=== PATIENT | female | born 1960 | race Caucasian/White ===

== ENCOUNTER → 2017-04-18 | Outpatient (CLI) | payer BC ==
[~2017-04-18] MED LIST: HYDR25TA4 PO; LAMO200T38 PO; PRM/45 PO; QUET-205 PO
[2017-04-18 13:01] LABS: BLOOD UREA NITROGEN 10 mg/dl (7-18); BUN/CREATININE RATIO 9.5 (10-20); CALCIUM 9.5 mg/dl (8.5-10.1); CARBON DIOXIDE 26 mmol/L (21-32); CHLORIDE 106 mmol/L (98-107); CHOLESTEROL 194 mg/dl (0-200); GLUCOSE 95 mg/dl (70-99); POTASSIUM 3.2 mmol/L (3.5-5.1); SODIUM 139 mmol/L (136-145)
[2017-04-18 13:05] LABS: CHOLESTEROL/HDL RATIO 2.6; HDL CHOLESTEROL 76 mg/dl; LDL CHOLESTEROL CALCULATED 94 mg/dl; TRIGLYCERIDES 118 mg/dl (0-150); VERY LOW DENSITY LIPOPROT CALC 24 mg/dl
== END | disposition home or self-care (01) ==
LOC: C.LABBFT 09:51
PROVIDERS: ATTEND Psychiatry & Neurology Psychiatry
DX: Z51.81 Encounter for therapeutic drug level monitoring (principal); Z79.899 Other long term (current) drug therapy

== ENCOUNTER → 2017-07-19 | Outpatient (CLI) | payer BC ==
[~2017-07-19] MED LIST changes: +LAMO200T35 PO; -LAMO200T38 PO
--- NOTE | 2017-07-23 15:28 | MAMMOGRAPHY REPORT ---
BILATERAL DIGITAL SCREENING MAMMOGRAM TOMOSYNTHESIS WITH CAD: 07/19/2017 TECHNIQUE: Breast tomosynthesis in addition to standard 2D mammography was performed. Current study was also evaluated with a Computer Aided Detection (CAD) system. COMPARISON: Comparison is made to exams dated: 04/11/2016 mammogram, 03/25/2015 mammogram, 03/24/2014 m ammogram, and 03/25/2012 mammogram - [facility]. BREAST COMPOSITION: There are scattered areas of fibroglandular density in both breasts. FINDINGS: No suspicious masses, calcifications, or areas of architectural distortion are noted in ei ther breast. There has been no significant interval change compared to prior exams. IMPRESSION: ACR BI-RADS CATEGORY 1: NEGATIVE There is no mammographic evidence of malignancy. A 1 year screening mammogram is recommended. The pa tient will receive written notification of the results. Approximately 10% of breast cancers are not detected with mammography. A negative mammographic report should not delay biopsy if a clinically suggestive mass is present. Mckayla Reilly M.D. ah/:07/19/2017 15:51:57 Advertising Analyst: Aleksandra ROBERTS(Nate)(M), [facility] letter sent: Normal 1/2 BI-RADS Code: ACR BI-RADS Category 1: Negative
== END | disposition home or self-care (01) ==
LOC: C.MAMM 13:04
PROVIDERS: ATTEND Internal Medicine
DX: Z12.31 Encounter for screening mammogram for malignant neoplasm of breast (principal)

== ENCOUNTER → 2017-09-10 | Outpatient (CLI) | payer BC ==
[2017-09-10 13:03] LABS: BLOOD UREA NITROGEN 13 mg/dl (7-18); CALCIUM 9.2 mg/dl (8.5-10.1); CARBON DIOXIDE 29 mmol/L (21-32); CREATININE 1.08 mg/dl (0.60-1.20); GLUCOSE 87 mg/dl (70-99); POTASSIUM 2.8 mmol/L (3.5-5.1); SODIUM 139 mmol/L (136-145)
== END | disposition home or self-care (01) ==
LOC: C.LABBFT 09:15
PROVIDERS: ATTEND Nurse Practitioner
DX: I10 Essential (primary) hypertension (principal)

== ENCOUNTER 2017-10-25 10:55 | Observation (INO) | payer BC ==
[~2017-10-25] VITALS: Ht 154.9 cm; Wt 74.8 kg
[2017-10-25] MEDS ORDERED: DEXAMETHASONE SOD INJ 4 MG/ML VIAL IV STA (11:19)
[2017-10-25] MEDS ORDERED: DiphenhydrAMINE HCL 50 MG/ML VIAL IV STA (11:19)
[2017-10-25] MEDS ORDERED: MoRPHine SULFATE 4 MG/ML 1 ML CARP\\VIAL IV STA (11:19)
[2017-10-25] MEDS ORDERED: PROCHLORPERAZINE 5 MG/ML 2 ML VIAL IV STA (11:19)
[2017-10-25] MEDS ORDERED: SODIUM CHLORIDE 0.9% 1000ML 1,000 ML IV ONE (11:30)
[2017-10-25] MEDS ORDERED: TOPI100T20 PO (11:35)
[2017-10-25] MEDS ORDERED: SRQ/200 PO (11:35)
[2017-10-25] MEDS ORDERED: LOSA50TA6 PO (11:35)
[2017-10-25] MEDS ORDERED: OPTIRAY 320 IV PRN (11:45)
[2017-10-25 11:55] LABS: BASO % 0.6 %; BASO ABS # 0.03 K/uL (0-0.2); EOS % 1.7 %; EOS ABS # 0.09 K/uL (0-0.5); HEMATOCRIT 45.3 % (37-47); HEMOGLOBIN 15.5 g/dL (12.0-16.0); IG# 0.01 K/uL (0.00-0.02); LYMPH % 28.4 %; LYMPH ABS # 1.52 K/uL (1.2-3.4); MEAN CELL VOLUME 88.5 fL (80-100); MEAN CORPUSCULAR HEMOGLOBIN 30.3 pg (25-34); MEAN CORPUSCULAR HGB CONC 34.2 g/dl (32-36); MEAN PLATELET VOLUME 9.6 fL (7.4-10.4); MONO % 4.1 %; MONO ABS # 0.22 K/uL (0.11-0.59); NEUT ABS # 3.48 K/uL (1.4-6.5); PLATELET COUNT 264 K/uL (130-400); RED CELL DISTRIBUTION WIDTH CV 13.4 % (11.5-14.5); RED CELL DISTRIBUTION WIDTH SD 43.1 fL (36.4-46.3); WHITE BLOOD COUNT 5.35 K/uL (4.8-10.8)
--- NOTE | 2017-10-25 12:02 | DIAGNOSTIC IMAGING REPORT ---
ANGIOGRAPHY HEAD COMBO HISTORY: Mental status change facial numbness TECHNIQUE: Multiaxial CT images of the head were performed both before and after the intravenous administration of contrast to evaluate the major cerebral vessels. Maximum intensity projection images were also obtained. A dose lowering technique was utilized adhering to the principles of ALARA. COMPARISON: None. FINDINGS: There is no mass, hematoma, midline shift, or acute infarct. Visualized intracranial internal carotid arteries, distal vertebral arteries, and basilar artery are widely patent. There is no significant stenosis, occlusion, or aneurysm seen within the bilateral ACAs, MCAs, or belt cutter. The anterior cerebral vasculature is fed exclusively from the left carotid system. This is a vascular variant. IMPRESSION: No significant stenosis, occlusion, or aneurysm within the [place]. Negative CT of the brain. The above report was generated using voice recognition software. It may contain grammatical, syntax or spelling errors. Electronically signed by: Roosevelt Anderson M.D. 10/25/2017 12:01 PM Dictated Date/Time: 10/25/2017 11:56 AM
--- NOTE | 2017-10-25 12:14 | EMERGENCY ROOM VISIT NOTE ---
History First contact with patient: 11:04 Chief Complaint: HEADACHE Stated Complaint: DEAN ON RT SIDE, FACE NUMB History of Present Illness The patient is a 57 year old female who presents to the Emergency Room with complaints of a severe headache in the left back side of her head that started this morning around 9:30 AM. The patient is also complaining of left sided facial numbness. She also feels like the back side of her left head is numb. She denies any confusion or slurred speech. No weakness in her hands or legs. No numbness over the rest of her body. She is also fairly nauseated. No vomiting. She denies any photosensitivity. No changes in vision. No aura. She does have a history of migraines. This does not feel like her typical migraine. She tried Advil at home with no relief. Review of Systems 10 system review performed and negative unless noted in HPI or below Past Medical/Surgical History Medical Problems: (1) Facial numbness (2) Headache Hypertension Social History Smoking Status: Never Smoker Housing Status: lives with family Current/Historical Medications Scheduled Hydrochlorothiazide (Hctz), 25 MG PO DAILY Lamotrigine (Lamictal), 200 MG PO BID Losartan Potassium (Cozaar), 50 MG PO DAILY Potassium Chloride (Potassium Chloride Er), 1 CAP PO DAILY Quetiapine Fumarate (Quetiapine Fumarate), 400 MG PO HS Topiramate (Topamax), 100 MG PO BID Physical Exam Vital Signs Date Time Temp Pulse Resp B/P (MAP) Pulse Ox O2 Delivery O2 Flow Rate FiO2 10/25/17 12:07 102 20 133/88 10/25/17 10:57 37.0 111 18 139/88 98 Room Air Physical Exam VITALS: Vitals are noted on the nurse's note and reviewed by myself. Vital signs stable. GENERAL: 57-year-old female, moderately uncomfortable and anxious in appearance, , SKIN: The skin was without rashes, erythema, edema, or bruising. HEAD: Normocephalic atraumatic. EARS: External auditory canals clear, tympanic membranes pearly k[place] without erythema or effusion bilaterally. EYES: Pupils equal round and reactive to light and accommodation. Left conjunctivitis slightly injected. Extraocular movements intact. NOSE: Patent, turbinates without inflammation or discharge. No sinus tenderness. MOUTH: Mucous membranes slightly dry tonsils are not enlarged. Pharynx without erythema or exudate. Uvula midline. Airway patent. Tongue does not deviate. NECK: Supple without nuchal rigidity. No lymphadenopathy. Cervical spine is nontender. No JVD. HEART: Regular rate and rhythm without murmurs gallops or rubs. LUNGS: Clear to auscultation bilaterally without wheezes, rales or rhonchi. No accessory muscle use. ABDOMEN: Positive bowel sounds x 4.Soft, MUSCULOSKELETAL: No muscle atrophy, erythema, or edema noted. Full range of motion in all extremities. No tenderness to palpation. Normal gait. Strength 5/5 throughout. NEURO: Patient was alert and oriented to person place and time. . Subjective dulled sensation on the left cheek. Otherwise, cranial nerves grossly intact. Cerebellar function intact. Slight tremor with the left hand with finger to nose. Medical Decision & Procedures ER Provider Diagnostic Interpretation: CT angio with and without head IMPRESSION: No significant stenosis, occlusion, or aneurysm within the [place]. Negative CT of the brain. The above report was generated using voice recognition software. It may contain grammatical, syntax or spelling errors. Electronically signed by: Roosevelt Anderson M.D. 10/25/2017 12:01 PM Dictated Date/Time: 10/25/2017 11:56 AM The status of this report is Signed. Draft = Not yet reviewed or approved by Radiologist. Signed = Reviewed and approved by Radiologist. <AttendingPhy></AttendingPhy> <FamilyPhy>Ziggy Sutton M.D.</FamilyPhy> < PrimaryPhy>Ziggy Sutton M.D.</PrimaryPhy> <UnitNumber>[id number]</UnitNumber > <VisitNumber>[id number]</VisitNumber> <PatientName>KRUPA PADGETT</ PatientName> <DateOfBirth>1960</DateOfBirth> <Location>[facility]</Location> < ServiceDate>10/25/17</ServiceDate> <MNE>ESINDI</MNE> <OrderingPhy>Geraldine Francisco PA-C</OrderingPhy> <OrderingPhyMNE>f rep ord dr gentile</OrderingPhyMNE> < DictatingPhyMNE>f rep dict dr mne</DictatingPhyMNE> <CCListMNE>f rep ct mne</ CCListMNE> <AdmittingPhyMNE>f pt admit dr gentile</AdmittingPhyMNE> <AttendingPhyMNE >f pt attend dr gentile</AttendingPhyMNE> <ConsultingPhyMNE>f pt consult dr gentiel</ConsultingPhyMNE> <FamilyPhyMNE>f pt fam dr gentile</FamilyPhyMNE> <OtherPhyMNE>f pt other dr gentile</OtherPhyMNE> < PrimaryPhyMNE>f pt prim care dr gentile</PrimaryPhyMNE> <ReferringPhyMNE>f pt referring dr gentile</ReferringPhyMNE> Laboratory Results 10/25/17 11:40 Red Blood Count 5.12, Mean Corpuscular Volume 88.5, Mean Corpuscular Hemoglobin 30.3, Mean Corpuscular Hemoglobin Concent 34.2, Mean Platelet Volume 9.6, Neutrophils (%) (Auto) 65.0, Lymphocytes (%) (Auto) 28.4, Monocytes (%) (Auto) 4.1, Eosinophils (%) (Auto) 1.7, Basophils (%) (Auto) 0.6, Neutrophils # (Auto) 3.48, Lymphocytes # (Auto) 1.52, Monocytes # (Auto) 0.22, Eosinophils # (Auto) 0.09, Basophils # (Auto) 0.03 10/25/17 11:40 Test 10/25/17 11:40 10/25/17 11:42 10/25/17 13:13 White Blood Count 5.35 K/uL (4.8-10.8) Red Blood Count 5.12 M/uL (4.2-5.4) Hemoglobin 15.5 g/dL (12.0-16.0) Hematocrit 45.3 % (37-47) Mean Corpuscular Volume 88.5 fL (80-100) Mean Corpuscular Hemoglobin 30.3 pg (25-34) Mean Corpuscular Hemoglobin Concent 34.2 g/dl (32-36) Platelet Count 264 K/uL (130-400) Mean Platelet Volume 9.6 fL (7.4-10.4) Neutrophils (%) (Auto) 65.0 % Lymphocytes (%) (Auto) 28.4 % Monocytes (%) (Auto) 4.1 % Eosinophils (%) (Auto) 1.7 % Basophils (%) (Auto) 0.6 % Neutrophils # (Auto) 3.48 K/uL (1.4-6.5) Lymphocytes # (Auto) 1.52 K/uL (1.2-3.4) Monocytes # (Auto) 0.22 K/uL (0.11-0.59) Eosinophils # (Auto) 0.09 K/uL (0-0.5) Basophils # (Auto) 0.03 K/uL (0-0.2) RDW Standard Deviation 43.1 fL (36.4-46.3) RDW Coefficient of Variation 13.4 % (11.5-14.5) Immature Granulocyte % (Auto) 0.2 % Immature Granulocyte # (Auto) 0.01 K/uL (0.00-0.02) Erythrocyte Sedimentation Rate 15 mm/hr (0-21) Prothrombin Time 9.9 SECONDS (9.0-12.0) Prothromb Time International Ratio 0.9 (0.9-1.1) Activated Partial Thromboplast Time 27.8 SECONDS (21.0-31.0) Partial Thromboplastin Ratio 1.1 Est Creatinine Clear Calc Drug Dose 47.4 ml/min Estimated GFR () 56.1 Estimated GFR (Non- 48.4 BUN/Creatinine Ratio 11.9 (10-20) Calcium Level 9.4 mg/dl (8.5-10.1) Magnesium Level 2.3 mg/dl (1.8-2.4) Total Bilirubin 0.3 mg/dl (0.2-1) Aspartate Amino Transf (AST/SGOT) 16 U/L (15-37) Alanine Aminotransferase (ALT/SGPT) 33 U/L (12-78) Alkaline Phosphatase 112 U/L (45-117) Total Creatine Kinase 116 U/L (26-192) Creatine Kinase MB < 0.5 ng/ml (0.5-3.6) Creatine Kinase MB Ratio (0-3.0) Troponin I < 0.015 ng/ml (0-0.045) Total Protein 8.3 gm/dl (6.4-8.2) Albumin 4.7 gm/dl (3.4-5.0) Globulin 3.6 gm/dl (2.5-4.0) Albumin/Globulin Ratio 1.3 (0.9-2) Bedside Hemoglobin 15.3 g/dl (12.0-16.0) Bedside Hematocrit 45 % (37-47) Bedside Sodium 145 mEq/L (135-144) Bedside Potassium 3.1 mEq/L (3.3-5.0) Bedside Chloride 108 mEq/L (101-112) Bedside Total CO2 25 mEq/l (24-31) Anion Gap 17.0 mmol/L (16-25) Bedside Blood Urea Nitrogen 15 mg/dl (7-18) Bedside Creatinine 1.1 mg/dl (0.6-1.3) Bedside Glucose (other) 149 mg/dl (70-99) Bedside Ionized Calcium (Isabel) 1.16 mmol/l (1.12-1.32) Urine Color YELLOW Urine Appearance CLEAR (CLEAR) Urine pH 8.0 (4.5-7.5) Urine Specific [place] 1.042 (1.000-1.030) Urine Protein NEG (NEG) Urine Glucose (UA) NEG (NEG) Urine Ketones NEG (NEG) Urine Occult Blood NEG (NEG) Urine Nitrite NEG (NEG) Urine Bilirubin NEG (NEG) Urine Urobilinogen NEG (NEG) Urine Leukocyte Esterase NEG (NEG) Medications Administered Medications (Trade) Dose Ordered Sig/Ramiro Route Start Time Stop Time Status Last Admin Dose Admin Sodium Chloride 1,000 ml @ 999 mls/hr Q1H1M ONCE IV 10/25/17 11:30 10/25/17 12:30 DC 10/25/17 12:04 999 MLS/HR Diphenhydramine HCl (Benadryl Inj) 50 mg NOW STAT IV 10/25/17 11:19 10/25/17 11:24 DC 10/25/17 12:00 50 MG Prochlorperazine Edisylate (Compazine Inj) 10 mg NOW STAT IV 10/25/17 11:19 10/25/17 11:24 DC 10/25/17 12:01 10 MG Dexamethasone Sodium Phosphate (Decadron Inj) 10 mg NOW STAT IV 10/25/17 11:19 10/25/17 11:24 DC 10/25/17 12:01 10 MG Morphine Sulfate (MoRPHine SULFATE INJ) 4 mg ONE STAT IV 10/25/17 11:19 10/25/17 11:24 DC 10/25/17 12:02 4 MG Potassium Chloride (Kcl 10 Meq / Wtr) 10 meq NOW STAT IV 10/25/17 12:28 10/25/17 12:29 DC 10/25/17 13:13 10 MEQ Potassium Chloride (Klor-Con M10) 40 meq NOW ONCE PO 10/25/17 14:00 10/25/17 14:59 DC 10/25/17 15:15 40 MEQ Cyclobenzaprine HCl (Flexeril Tab) 10 mg 1400 ONCE PO 10/25/17 14:00 10/25/17 14:56 DC 10/25/17 15:15 10 MG ED Course Patient was seen and examined Vital signs including blood pressure were reviewed medications list was verified with patient Labs were obtained, and a saline lock was established The patient was medicated with Benadryl, Decadron and Compazine IV. She was hydrated with 1 L of normal saline. Imaging was performed and reviewed The patient was reassessed. Her headache went from a 7 to a 5 out of 10. We thoroughly reviewed her results. She voiced understanding. The case was also discussed with my supervising physician who is in agreement with my plan I discussed the case with case management and subsequently the [facility] hospitalist team, who kindly agreed to admit the patient for further workup and treatment Medical Decision Differential includes: Atypical migraine, acute intracranial bleed, trauma, meningitis, encephalitis, increased intracranial pressure, mass or mass effect, facial or dental infection, temporal arteritis, CVA, TIA, acute hypertensive emergency, sinusitis, carbon monoxide exposure. This patient is a 57-year-old female that presents to emergency department with a severe left occipital headache and left facial numbness. On exam, she was neurologically intact, however she had subjective decreased sensation over the left cheek. Her labs reveal a mildly elevated creatinine. When questioned, the patient says that she does take daily ibuprofen for headaches. Her potassium was also low. This was repleted in the emergency department. Despite having slight pain relief, the numbness on the face persisted. I cannot completely rule out TIA/CVA. For these reasons, the case was discussed with the hospitalist group who kindly agreed to admit the patient for further workup and treatment This chart was completed in part utilizing [employer] Voice Recognition software. Attempts were made to minimize the grammatical errors, random word insertions, pronoun errors and incomplete sentences. Any formal questions or concerns about the content, text or information contained within the body of this dictation should be directly addressed to the provider for clarification. Medication Reconcilliation Current Medication List: was personally reviewed by me Blood Pressure Screening Patient's blood pressure: Elevated blood pressure Blood pressure disposition: Elevated BP felt to be situational Consults Consulting Physician: Mouth and a hospitalist Impression Primary Impression: Facial numbness Additional Impression: Headache Departure Information Referrals Ziggy Sutton M.D. (PCP) Patient Instructions My [facility] Problem Qualifiers
[2017-10-25 12:16] LABS: ALBUMIN 4.7 gm/dl (3.4-5.0); CALCIUM 9.4 mg/dl (8.5-10.1); CREATININE 1.25 mg/dl (0.60-1.20)
[2017-10-25 12:19] LABS: TOTAL PROTEIN 8.3 gm/dl (6.4-8.2)
[2017-10-25] MEDS ORDERED: POTASSIUM CHLORIDE 10 MEQ / 100ML WTR IV STA (12:28)
[2017-10-25] MEDS ORDERED: CYCLOBENZAPRINE HCL 5 MG TAB PO ONE (14:00)
[2017-10-25] MEDS ORDERED: ALUMINUM/MAGNESIUM/SIMETH (MAALOX MAX) 30 ML UDC PO PRN (14:00)
[2017-10-25] MEDS ORDERED: POLYETHYLENE (MIRALAX) 17 GM PACK PO PRN (14:00)
[2017-10-25] MEDS ORDERED: DICLOFENAC SOD 1% GEL 100 GM TUBE EXT PRN (14:00)
[2017-10-25] MEDS ORDERED: CYCLOBENZAPRINE HCL 5 MG TAB PO PRN (14:00)
[2017-10-25] MEDS ORDERED: ACETAMINOPHEN 325 MG TAB PO PRN (14:00)
[2017-10-25] MEDS ORDERED: MAGNESIUM HYDROXIDE SUSP 30 ML UDC PO PRN (14:00)
[2017-10-25] MEDS ORDERED: POTASSIUM CHLORIDE 10 MEQ TABCR PO ONE (14:00)
[2017-10-25] MEDS ORDERED: PHARMACIST DISCHARGE MED REC CONSULT PRN (14:00)
[2017-10-25] MEDS ORDERED: ONDANSETRON INJ 2 MG/ML 2 ML VIAL IV PRN (14:00)
[2017-10-25] MEDS ORDERED: QUET1TAB20 PO (14:25)
[2017-10-25] MEDS ORDERED: POTA1CAP2 PO (14:25)
[2017-10-25] MEDS ORDERED: ATORVASTATIN 40 MG TAB PO ONE (15:03)
--- NOTE | 2017-10-25 15:13 | History and Physical ---
History & Physical Date & Time of Service: Oct 25, 2017 at 14:33 Chief Complaint: Harmon On left Side, Face Numb Primary Care Physician: Ziggy Sutton M.D. History of Present Illness Source: patient, spouse, clinic records, hospital records This is a 57 y/o female with a history of HTN, depression, migraines, and CKD stage III who presented to the ED on 10/25 with left sided headache and left facial numbness. The patient states she was in her normal state of health yesterday. This morning, she woke up with a severe, diffuse headache. She took an Aleve with no relief. The pain then shifted to the left posterior side of her head. She states the pain was a 7/10 sharp pain. She also developed numbness on the left side of her face. She states she has a strong family history of stroke, including her brother who had a stroke as a teenager and then again more recently, her mother, and her grandfather who of a stroke at 40. She states that she also had associated nausea and dizziness with her pain this morning. She denies any visual changes or sensitivity to light and sound. She has a history of migraines, but states she hasn't had any for many years and they never felt like this. The patient received Benadryl, Compazine, Decadron, and morphine in the ED. Upon my examination, her headache and facial numbness are now resolved, but she now complains of 7/10 sharp pain in her right shoulder going down her upper arm. The patient denies fevers, chills, sweats, chest pain, palpitations, claudication, cough, wheezing, shortness of breath, vomiting, abdominal pain, dysuria, hematuria, urinary retention, paralysis, weakness. 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 No fever, No chills, No sweats Eyes: No worsening of vision, No eye pain, No diplopia ENT: No hearing loss, No nasal symptoms, No trouble swallowing Respiratory: No cough, No wheezing, No shortness of breath Cardiovascular: No chest pain, No claudication, No palpitations Abdomen: +Nausea. No pain, No vomiting Musculoskeletal: +Right shoulder/base of neck pain. No joint pain, No swelling Genitourinary - Female: No dysuria, No urinary retention, No hematuria Neurologic: +Headache, left facial numbness. No paralysis, No weakness Integumentary: No rash, No itch, No color change Physical Exam Vital Signs Date Time Temp Pulse Resp B/P (MAP) Pulse Ox O2 Delivery O2 Flow Rate FiO2 10/25/17 12:07 102 20 133/88 10/25/17 10:57 37.0 111 18 139/88 98 Room Air General appearance: +Obese. Well-developed, well-nourished, no apparent distress Head: Normocephalic, atraumatic Eyes: Normal inspection, PERRL, EOMI ENT: Normal ENT inspection, hearing grossly normal, pharynx normal Neck: Supple, no JVD, trachea midline Respiratory/Chest: Lungs clear to auscultation, normal breath sounds, no respiratory distress Cardiovascular: Regular rate & rhythm, no gallop, no murmur Abdomen/GI: Normal bowel sounds, non-tender, soft Extremities/Musculoskeletal: +Right trapezius tight. Pt states pain partially relieved with palpation. Active and passive ROM intact, does not exacerbate pain. Normal inspection, no calf tenderness, no pedal edema Neurological/Psych: +Sensation intact, equal bilaterally in face and throughout. No pronator drift, facial droop, or slurred speech. Motor strength 5/5 all extremities. Finger to nose intact bilaterally. Alert, normal mood/affect, oriented x 3 Skin: Normal color, warm/dry, no rash Diagnostics Laboratory Results Results Past 24 Hours Test 10/25/17 11:40 10/25/17 13:13 10/25/17 14:00 Range/Units White Blood Count 5.35 4.8-10.8 K/uL Red Blood Count 5.12 4.2-5.4 M/uL Hemoglobin 15.5 12.0-16.0 g/dL Hematocrit 45.3 37-47 % Mean Corpuscular Volume 88.5 80-100 fL Mean Corpuscular Hemoglobin 30.3 25-34 pg Mean Corpuscular Hemoglobin Concent 34.2 32-36 g/dl Platelet Count 264 130-400 K/uL Mean Platelet Volume 9.6 7.4-10.4 fL Neutrophils (%) (Auto) 65.0 % Lymphocytes (%) (Auto) 28.4 % Monocytes (%) (Auto) 4.1 % Eosinophils (%) (Auto) 1.7 % Basophils (%) (Auto) 0.6 % Neutrophils # (Auto) 3.48 1.4-6.5 K/uL Lymphocytes # (Auto) 1.52 1.2-3.4 K/uL Monocytes # (Auto) 0.22 0.11-0.59 K/uL Eosinophils # (Auto) 0.09 0-0.5 K/uL Basophils # (Auto) 0.03 0-0.2 K/uL RDW Standard Deviation 43.1 36.4-46.3 fL RDW Coefficient of Variation 13.4 11.5-14.5 % Immature Granulocyte % (Auto) 0.2 % Immature Granulocyte # (Auto) 0.01 0.00-0.02 K/uL Erythrocyte Sedimentation Rate 15 0-21 mm/hr Sodium Level 141 136-145 mmol/L Potassium Level 3.0 3.5-5.1 mmol/L Chloride Level 108 98-107 mmol/L Carbon Dioxide Level 25 21-32 mmol/L Anion Gap 8.0 3-11 mmol/L Blood Urea Nitrogen 15 7-18 mg/dl Creatinine 1.25 0.60-1.20 mg/dl Est Creatinine Clear Calc Drug Dose 47.4 ml/min Estimated GFR () 56.1 Estimated GFR (Non- 48.4 BUN/Creatinine Ratio 11.9 10-20 Random Glucose 141 70-99 mg/dl Calcium Level 9.4 8.5-10.1 mg/dl Total Bilirubin 0.3 0.2-1 mg/dl Aspartate Amino Transf (AST/SGOT) 16 15-37 U/L Alanine Aminotransferase (ALT/SGPT) 33 12-78 U/L Alkaline Phosphatase 112 45-117 U/L Total Protein 8.3 6.4-8.2 gm/dl Albumin 4.7 3.4-5.0 gm/dl Globulin 3.6 2.5-4.0 gm/dl Albumin/Globulin Ratio 1.3 0.9-2 Urine Color YELLOW Urine Appearance CLEAR CLEAR Urine pH 8.0 4.5-7.5 Urine Specific [place] 1.042 1.000-1.030 Urine Protein NEG NEG Urine Glucose (UA) NEG NEG Urine Ketones NEG NEG Urine Occult Blood NEG NEG Urine Nitrite NEG NEG Urine Bilirubin NEG NEG Urine Urobilinogen NEG NEG Urine Leukocyte Esterase NEG NEG Diagnostic Radiology Reviewed the following studies and agree with interpretation as follows: ANGIOGRAPHY HEAD COMBO HISTORY: Mental status change facial numbness TECHNIQUE: Multiaxial CT images of the head were performed both before and after the intravenous administration of contrast to evaluate the major cerebral vessels. Maximum intensity projection images were also obtained. A dose lowering technique was utilized adhering to the principles of ALARA. COMPARISON: None. FINDINGS: There is no mass, hematoma, midline shift, or acute infarct. Visualized intracranial internal carotid arteries, distal vertebral arteries, and basilar artery are widely patent. There is no significant stenosis, occlusion, or aneurysm seen within the bilateral ACAs, MCAs, or cognos bi administrator. The anterior cerebral vasculature is fed exclusively from the left carotid system. This is a vascular variant. IMPRESSION: No significant stenosis, occlusion, or aneurysm within the [place]. Negative CT of the brain. Impression Assessment and Plan 57 y/o female with a history of HTN, depression, migraines, and CKD stage III who presented to the ED on 10/25 with left sided headache and left facial numbness. Pt arrived to ED afebrile, VSS. Head CTA negative for acute disease. Potassium 3.0, given KCl 10 mEq IV x 1 in ED. Creatinine slightly elevated at 1.25. Pt given 1L NSS bolus in ED. Headache now resolved after receiving Benadryl 50 mg IV, Decadron 10 mg IV, and morphine 4 mg IV in ED, but now with pain in her right shoulder/neck. Facial numbness resolved. Possible TIA vs complex migraine, h/o migraines--no migraines for over 10 years , never presented like this -Admit to telemetry for observation -Stroke protocol -MRI brain -Head CTA negative -Carotid ultrasound -Trend cardiac enzymes q8h x 3 -Consult neurology, appreciate recs -Start ASA 81 mg PO qd, Lipitor 40 mg PO qd -Check fasting lipid panel, HgbA1c -Continue Topamax 100 mg PO BID Very mild GURDEEP on CKD stage III -Creatinine 1.25 on admission, had been 1.08 last month -Hold HCTZ, losartan for now -Received 1L NSS bolus in ED, continue to monitor Hypokalemia -Potassium 3.0 on admission, given 10 mEq in ED -KCl 40 mEq PO x 1 -Increase home KCl to 20 mEq PO qd -Check magnesium, replace prn Right shoulder pain--alleviated partially w/palpation, appears to be musculoskeletal -Flexeril 10 mg PO x 1 now, then 10 mg PO TID prn spasm -Voltaren gel QID prn pain HTN--stable -Hold HCTZ and losartan as above for now -Cover with hydralazine 10 mg IV q6h prn SBP >180 Depression -Continue Lamictal 200 mg PO BID and Seroquel 400 mg PO hs DVT prophylaxis -Heparin 5000 units SC q12h -HARINDER solomon and Tr Code Status -Level I, FULL RESUSCITATION STATUS ATTENDING PHYSICIAN ATTESTATION TierraMiko is a 57/F admitted for TIA warranting further workup. She was seen and examined by Taisha Keita PA-C and Admitting Hospitalist Natanael Branch MD. She has remote Hx of migraine headaches but current symptomatolgy is completely different from her usual episodes. She is 1 CVA risk factors which is HTN. Furthermore, she has a significant FHx of CVAs. Pt was experiencing left sided numbness which were improving. No facial droop. No other focal neurological deficits. She is hemodynamically stable and will resume CVA evaluation. Resuscitation Status VTE Prophylaxis Will order VTE Prophylaxis: Yes
[2017-10-25] MEDS ORDERED: HydrALAZINE HCL 20 MG/ML VIAL IV. PRN (15:15)
[2017-10-25 15:42] LABS: CKMB < 0.5 ng/ml (0.5-3.6)
[2017-10-25 15:51] LABS: ISTAT CREATININE 1.1 mg/dl (0.6-1.3); ISTAT IONIZED CALCIUM 1.16 mmol/l (1.12-1.32); ISTAT POTASSIUM 3.1 mEq/L (3.3-5.0)
--- NOTE | 2017-10-25 15:58 | DIAGNOSTIC IMAGING REPORT ---
MRI OF THE BRAIN WITHOUT IV CONTRAST CLINICAL HISTORY: Headache. Left facial numbness. COMPARISON STUDY: CT of the brain dated 10/25/2017. TECHNIQUE: MRI of the brain was performed utilizing various T1 and T2-weighted sequences in the axial, sagittal, and coronal planes. IV contrast was not administered for this examination. FINDINGS: Brain parenchyma: The brain parenchyma is normal in appearance. There is no hemorrhage or mass effect. There is no restricted diffusion to suggest acute ischemia. Toribio-white matter differentiation is preserved. No extra-axial fluid collection is seen. The cerebellar tonsils are normal in configuration. Ventricles, sulci, and cisterns: Normal in configuration. Pituitary and sella: Unremarkable. Intracranial vasculature: Normal flow voids are maintained at the skull base. Orbits: The bony orbits are grossly intact. Orbital contents are normal in appearance. Sinuses and mastoids: Clear. Calvarium: Unremarkable. Cervical cord: Partially visualized cervical spinal cord is normal in morphology and signal intensity. IMPRESSION: No acute intracranial abnormality. Electronically signed by: Kerwin Shook M.D. 10/25/2017 3:57 PM Dictated Date/Time: 10/25/2017 3:54 PM
[2017-10-25 16:08] LABS: INR 0.9 (0.9-1.1); PTT PATIENT 27.8 SECONDS (21.0-31.0)
[2017-10-25] MEDS ORDERED: IV FLUIDS COMPLETED PRN (16:15)
[2017-10-25 16:20] VITALS: BP 143/82; PULSE 84; TEMP 36.6; O2SAT 97; Ht 154.9 cm; Wt 74.8 kg
--- NOTE | 2017-10-25 16:30 | DIAGNOSTIC IMAGING REPORT ---
CAROTID DOPPLER NECK ART CLINICAL HISTORY: 57 years-old Female presenting with rule out stroke, left-sided headache. TECHNIQUE: Real-time grayscale and color and spectral Doppler ultrasound imaging of the bilateral carotid arteries was performed. NASCET criteria was used in evaluating this study. COMPARISON: None. FINDINGS: Right: Common carotid: Patent. Peak systolic velocity 85 cm/s. Internal carotid artery: Patent. Peak systolic velocity 80 cm/s. Systolic ratio: 0.9. External carotid artery: Patent. Peak systolic velocity 78 cm/s. Left: Common carotid: Patent. Peak systolic velocity 78 cm/s. Internal carotid artery: Patent. Peak systolic velocity 69 cm/s. Systolic ratio: 0.9. External carotid artery: Patent. Peak systolic velocity 68 cm/s. Bilateral antegrade flow within the vertebral arteries. Reference ranges: Stenosis measurements are compared to reference velocity parameters. Primary parameters: ICA peak systolic velocity (PSV) < 125 cm/s normal or indicating < 50% stenosis; ICA PSV 125-230 cm/s equivalent to 50-69% stenosis; ICA PSV > 230 cm/s equivalent to greater than or equal to 70% stenosis. Additional parameters: ICA PSV to common carotid artery PSV ratio < 2 normal or < 50% stenosis; 2-4 equates to 50-69% stenosis, > 4 equates to greater than or equal to 70% stenosis. Normal ICA end-diastolic velocity less than 40. Blood pressure Brachial: Right: 121/90 mmHg, Left: 139/88 mmHg. Other: A few prominent cervical lymph nodes, which are benign in morphology and likely reactive. IMPRESSION: No hemodynamically significant stenosis seen within the carotid arteries. Electronically signed by: Dario Oviedo M.D. 10/25/2017 4:29 PM Dictated Date/Time: 10/25/2017 4:28 PM
[2017-10-25 20:00] VITALS: O2SAT 94
[2017-10-25 20:08] VITALS: BP 117/69; PULSE 71; TEMP 36.6; O2SAT 94
[2017-10-25] MEDS: TOPIRAMATE 100 MG TAB PO SCH (20:32)
[2017-10-25] MEDS: HEPARIN SOD 5000 UNIT/0.5 ML CARP SQ SCH (20:34)
[2017-10-25] MEDS ORDERED: QUETIAPINE FUMARATE 200 MG TAB PO SCH (21:00)
[2017-10-25 23:28] VITALS: BP 95/55; PULSE 68; TEMP 36.5; O2SAT 96
[2017-10-25 23:42] LABS: CKMB < 0.5 ng/ml (0.5-3.6)
[2017-10-26 04:31] VITALS: BP 100/59; PULSE 65; TEMP 36.8; O2SAT 98
[2017-10-26 07:17] LABS: BASO % 0.2 %; BASO ABS # 0.02 K/uL (0-0.2); EOS % 0.2 %; EOS ABS # 0.02 K/uL (0-0.5); HEMATOCRIT 41.6 % (37-47); HEMOGLOBIN 13.7 g/dL (12.0-16.0); IG# 0.01 K/uL (0.00-0.02); LYMPH % 24.4 %; LYMPH ABS # 2.61 K/uL (1.2-3.4); MEAN CELL VOLUME 89.7 fL (80-100); MEAN CORPUSCULAR HEMOGLOBIN 29.5 pg (25-34); MEAN CORPUSCULAR HGB CONC 32.9 g/dl (32-36); MEAN PLATELET VOLUME 9.5 fL (7.4-10.4); MONO % 5.6 %; NEUT % 69.5 %; NEUT ABS # 7.43 K/uL (1.4-6.5); PLATELET COUNT 268 K/uL (130-400); RED CELL DISTRIBUTION WIDTH CV 13.4 % (11.5-14.5); RED CELL DISTRIBUTION WIDTH SD 44.3 fL (36.4-46.3); WHITE BLOOD COUNT 10.69 K/uL (4.8-10.8)
[2017-10-26 07:35] LABS: HEMOGLOBIN A1C 5.4 % (4.5-5.6)
[2017-10-26 07:41] VITALS: BP 89/64; PULSE 65; TEMP 36.5; O2SAT 97
[2017-10-26 07:49] LABS: BLOOD UREA NITROGEN 15 mg/dl (7-18); CALCIUM 8.9 mg/dl (8.5-10.1); CARBON DIOXIDE 21 mmol/L (21-32); CREATININE 1.11 mg/dl (0.60-1.20); GLUCOSE 88 mg/dl (70-99); POTASSIUM 3.5 mmol/L (3.5-5.1); SODIUM 141 mmol/L (136-145)
[2017-10-26 07:50] LABS: CHOLESTEROL 179 mg/dl (0-200); CKMB 0.8 ng/ml (0.5-3.6); LDL CHOLESTEROL CALCULATED 67 mg/dl
[2017-10-26 08:07] VITALS: BP 106/52
[2017-10-26] MEDS: TOPIRAMATE 100 MG TAB PO SCH (08:12)
[2017-10-26] MEDS: HEPARIN SOD 5000 UNIT/0.5 ML CARP SQ SCH (08:14)
[2017-10-26] MEDS ORDERED: ASPIRIN 81 MG ECTAB PO SCH (09:00)
[2017-10-26] MEDS ORDERED: ATORVASTATIN 40 MG TAB PO SCH (09:00)
[2017-10-26] MEDS ORDERED: POTASSIUM CHLORIDE 20 MEQ TABCR PO SCH (09:00)
--- NOTE | 2017-10-26 11:00 | Neurology Consultation ---
Neurology Consultation Date of Consultation: Oct 26, 2017. Attending Physician: Natanael Urrutia M.D. Primary Care Physician: Ziggy Sutton M.D. Reason for Consultation: Consultation for headache and left facial numbness and concern for possible TIA History of Present Illness Source: patient, hospital records This is a 57-year-old female who presents for the above evaluation. She reports that she woke up yesterday morning with nonspecific generalized headache. Quickly developed into more of a left-sided headache with severe throbbing quality. Noted that her left eye got red. No facial skin changes or flushing. She did feel like her face was hot. As they were driving to the emergency room for evaluation she felt slow onset tingling sensation on the left side of her face that lasted for about 5 minutes and then slowly resolved. She also felt like her left arm felt funny as well. She reports a history of migraine headaches but reports she has not had a typical migraine headache in over 20 years. She reports this did not feel like a typical migraine headache to her. She does tend to get frequent headaches and has some sort of headache on most days of the week. Takes daily ibuprofen. Sometimes will take Aleve. She reports this morning she still has a dull sensation in her left occiput like ahead it might be trying to develop but otherwise feels like she is at her neurological baseline. She did have some nausea associated with a headache yesterday. No weakness. No changes in mentation. No changes in speech. No facial droop. She has never had anything like this before. Patient does have a significant family history for a brother who had a stroke when he was in his teens of unknown etiology. Mother had a stroke in her 60s. Paternal grandfather had a stroke in his 40s. Workup to date was reviewed. CTA of the head was unremarkable. Ultrasound of the carotids was unremarkable. MRI of the brain report and images reviewed by myself and completely normal. ESR was noted to be normal at 15. Hemoglobin A1c 5.4. HEENT total cholesterol 179, LDL 67, HDL 72, triglycerides 198. Patient did receive Benadryl, Compazine, Decadron, and morphine in the emergency room and felt like this mostly resolved her headache. Migraine headaches when she was younger were described as migraine without aura. Never had any numbness or focal neurological symptoms with migraine headaches in the past. Past Medical/Surgical History Hypertension, depression, history of migraine headaches and current daily chronic headaches, CKD Patient has no personal history of previous clots in the past. Family History Strong family history of strokes at a young age on her mother side including her brother, mother, and grandfather. Diabetes and heart attacks also in the family. Social History Patient is employed. 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 No tobacco use. Occasional alcohol use. No illegal drug use. 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) Allergies Coded Allergies: No Known Allergies (Unverified , 10/25/17) Current Inpatient Medications Current Inpatient Medications Medications (Trade) Dose Ordered Sig/Ramiro Route Start Time Stop Time Status Last Admin Dose Admin Ioversol (Optiray 320) 100 ml UD PRN IV 10/25/17 11:45 10/29/17 11:44 Heparin Sodium (Porcine) (Heparin Sq 5000 Unit/0.5ml) 5,000 unit Q12 SQ 10/25/17 21:00 11/24/17 20:59 10/26/17 08:14 5,000 UNIT Acetaminophen (Tylenol Tab) 650 mg Q4H PRN PO 10/25/17 14:00 11/24/17 13:59 10/25/17 20:27 650 MG Al Hydrox/Mg Hydrox/Simethicone (Maalox Max Susp) 15 ml Q4H PRN PO 10/25/17 14:00 11/24/17 13:59 Magnesium Hydroxide (Milk Of Magnesia Susp) 30 ml Q12H PRN PO 10/25/17 14:00 11/24/17 13:59 Ondansetron HCl (Zofran Inj) 4 mg Q6H PRN IV 10/25/17 14:00 11/24/17 13:59 Polyethylene (Miralax Powder Packet) 17 gm DAILY PRN PO 10/25/17 14:00 11/24/17 13:59 Aspirin (Ecotrin Tab) 81 mg QAM PO 10/26/17 09:00 11/25/17 08:59 10/26/17 08:11 81 MG Miscellaneous Information (Pharmacist Discharge Med Rec Consult) 1 ea UD PRN N/A 10/25/17 14:00 11/24/17 13:59 Cyclobenzaprine HCl (Flexeril Tab) 10 mg TID PRN PO 10/25/17 14:00 11/24/17 13:59 Diclofenac Sodium (Voltaren 1% Top Gel) 1 appln QID PRN EXT 10/25/17 14:00 11/24/17 13:59 Lamotrigine (Lamictal Tab) 200 mg BID PO 10/25/17 21:00 11/24/17 20:59 10/26/17 08:11 200 MG Topiramate (Topamax Tab) 100 mg BID PO 10/25/17 21:00 11/24/17 20:59 10/26/17 08:12 100 MG Potassium Chloride (Klor-Con Tab) 20 meq QAM PO 10/26/17 09:00 11/25/17 08:59 10/26/17 08:10 20 MEQ Quetiapine Fumarate (seroQUEL TAB) 400 mg HS PO 10/25/17 21:00 11/24/17 20:59 10/25/17 20:31 400 MG Atorvastatin Calcium (Lipitor Tab) 40 mg QAM PO 10/26/17 09:00 11/25/17 08:59 10/26/17 08:11 40 MG Hydralazine HCl (HydrALAZINE INJ) 10 mg Q6H PRN IV. 10/25/17 15:15 11/24/17 15:14 Miscellaneous (Iv Fluids Completed) 1 ea PRN PRN N/A 10/25/17 16:15 10/25/18 16:14 Review of Systems Complete review of systems otherwise negative except for the above-noted in HPI Physical Exam Vital Signs (Past 24 Hrs): Date Time Temp Pulse Resp B/P (MAP) Pulse Ox O2 Delivery O2 Flow Rate FiO2 10/26/17 08:07 106/52 (70) 10/26/17 08:00 Room Air 10/26/17 07:41 36.5 65 16 89/64 (72) 97 Room Air 10/26/17 04:31 36.8 65 18 100/59 (73) 98 Room Air 10/26/17 04:00 Room Air 10/25/17 23:59 Room Air 10/25/17 23:28 36.5 68 17 95/55 (68) 96 Room Air 10/25/17 20:08 36.6 71 20 117/69 (85) 94 Room Air 10/25/17 20:00 94 Room Air 10/25/17 16:20 36.6 84 16 143/82 97 Room Air 10/25/17 15:12 91 20 121/90 10/25/17 12:07 102 20 133/88 10/25/17 10:57 37.0 111 18 139/88 98 Room Air Gen.: Patient is alert and sitting in bed, in no acute distress. HEENT: Normocephalic /atraumatic, no scleral icterus Heart: Regular rate and rhythm Extremities: No gross deformities or rashes noted Neurological examination: Mental status: Patient is alert and oriented x3. Attention and concentration normal for the situation. Good fund of knowledge. Remote and recent memory intact. Speech is fluent without any dysarthria or aphasia noted Cranial nerve: Funduscopic examination was unremarkable. No papilledema. Pupils equally round and reactive to light. Extraocular muscles intact without nystagmus. No facial asymmetry noted. Facial sensation intact. Tongue is midline. Good palatal elevation. Good shoulder shrug bilaterally. Hearing grossly intact to voice. Strength: 5/5 both proximal and distally in all extremities. There is no arm drift. Tone is normal. Sensation: Grossly intact to light touch in all extremities. Deep tendon reflexes: +1 in bilateral biceps, brachioradialis and patellar. Coordination: Patient had good finger to nose without dysmetria Station within the bed was normal Laboratory Results Past 24 Hours: 10/26/17 06:57 Red Blood Count 4.64, Mean Corpuscular Volume 89.7, Mean Corpuscular Hemoglobin 29.5, Mean Corpuscular Hemoglobin Concent 32.9, Mean Platelet Volume 9.5, Neutrophils (%) (Auto) 69.5, Lymphocytes (%) (Auto) 24.4, Monocytes (%) (Auto) 5.6, Eosinophils (%) (Auto) 0.2, Basophils (%) (Auto) 0.2, Neutrophils # (Auto) 7.43, Lymphocytes # (Auto) 2.61, Monocytes # (Auto) 0.60, Eosinophils # (Auto) 0.02, Basophils # (Auto) 0.02 10/26/17 06:57 Test 10/25/17 11:40 10/25/17 11:42 10/25/17 13:13 10/26/17 06:57 Erythrocyte Sedimentation Rate 15 mm/hr (0-21) Prothrombin Time 9.9 SECONDS (9.0-12.0) Prothromb Time International Ratio 0.9 (0.9-1.1) Activated Partial Thromboplast Time 27.8 SECONDS (21.0-31.0) Partial Thromboplastin Ratio 1.1 Estimated Average Glucose 108 mg/dl Hemoglobin A1c 5.4 % (4.5-5.6) Magnesium Level 2.3 mg/dl (1.8-2.4) Total Bilirubin 0.3 mg/dl (0.2-1) Aspartate Amino Transf (AST/SGOT) 16 U/L (15-37) Alanine Aminotransferase (ALT/SGPT) 33 U/L (12-78) Alkaline Phosphatase 112 U/L (45-117) Total Protein 8.3 gm/dl (6.4-8.2) Albumin 4.7 gm/dl (3.4-5.0) Globulin 3.6 gm/dl (2.5-4.0) Albumin/Globulin Ratio 1.3 (0.9-2) Bedside Hemoglobin 15.3 g/dl (12.0-16.0) Bedside Hematocrit 45 % (37-47) Bedside Sodium 145 mEq/L (135-144) Bedside Potassium 3.1 mEq/L (3.3-5.0) Bedside Chloride 108 mEq/L (101-112) Bedside Total CO2 25 mEq/l (24-31) Bedside Blood Urea Nitrogen 15 mg/dl (7-18) Bedside Creatinine 1.1 mg/dl (0.6-1.3) Bedside Glucose (other) 149 mg/dl (70-99) Bedside Ionized Calcium (Isabel) 1.16 mmol/l (1.12-1.32) Urine Color YELLOW Urine Appearance CLEAR (CLEAR) Urine pH 8.0 (4.5-7.5) Urine Specific Blair 1.042 (1.000-1.030) Urine Protein NEG (NEG) Urine Glucose (UA) NEG (NEG) Urine Ketones NEG (NEG) Urine Occult Blood NEG (NEG) Urine Nitrite NEG (NEG) Urine Bilirubin NEG (NEG) Urine Urobilinogen NEG (NEG) Urine Leukocyte Esterase NEG (NEG) White Blood Count 10.69 K/uL (4.8-10.8) Red Blood Count 4.64 M/uL (4.2-5.4) Hemoglobin 13.7 g/dL (12.0-16.0) Hematocrit 41.6 % (37-47) Mean Corpuscular Volume 89.7 fL (80-100) Mean Corpuscular Hemoglobin 29.5 pg (25-34) Mean Corpuscular Hemoglobin Concent 32.9 g/dl (32-36) Platelet Count 268 K/uL (130-400) Mean Platelet Volume 9.5 fL (7.4-10.4) Neutrophils (%) (Auto) 69.5 % Lymphocytes (%) (Auto) 24.4 % Monocytes (%) (Auto) 5.6 % Eosinophils (%) (Auto) 0.2 % Basophils (%) (Auto) 0.2 % Neutrophils # (Auto) 7.43 K/uL (1.4-6.5) Lymphocytes # (Auto) 2.61 K/uL (1.2-3.4) Monocytes # (Auto) 0.60 K/uL (0.11-0.59) Eosinophils # (Auto) 0.02 K/uL (0-0.5) Basophils # (Auto) 0.02 K/uL (0-0.2) RDW Standard Deviation 44.3 fL (36.4-46.3) RDW Coefficient of Variation 13.4 % (11.5-14.5) Immature Granulocyte % (Auto) 0.1 % Immature Granulocyte # (Auto) 0.01 K/uL (0.00-0.02) Anion Gap 9.0 mmol/L (3-11) Est Creatinine Clear Calc Drug Dose 53.0 ml/min Estimated GFR () 64.7 Estimated GFR (Non- 55.9 BUN/Creatinine Ratio 13.2 (10-20) Calcium Level 8.9 mg/dl (8.5-10.1) Total Creatine Kinase 73 U/L (26-192) Creatine Kinase MB 0.8 ng/ml (0.5-3.6) Creatine Kinase MB Ratio 1.1 (0-3.0) Troponin I < 0.015 ng/ml (0-0.045) Triglycerides Level 198 mg/dl (0-150) Cholesterol Level 179 mg/dl (0-200) HDL Cholesterol 72 mg/dl LDL Cholesterol, Calculated 67 mg/dl VLDL Cholesterol, Calculated 40 mg/dl Cholesterol/HDL Ratio 2.5 Imaging As noted in HPI Impression This is a 57-year-old female who presented with severe headache and brief left- sided facial numbness/tingling that may have extended into her left arm. Overall events sounds probably more consistent with migraine headaches and the patient does get daily chronic headaches with likely ibuprofen overuse. Her family history and current use of weight loss supplement does make me concerned that there could be a possibility of TIA. Current known stroke risk factors include hypertension. Plan Recommend echocardiogram to complete the patient's stroke risk factor evaluation. If the patient is not able to get that done today, I feel it is acceptable to be done as an outpatient. I have added on some additional labs to look for more genetically based hypercoagulable state taking into account her family history for further stroke risk factor evaluation. (Many of these labs will take several weeks to return and can follow-up in neurology clinic for results) Recommended to the patient that it would be beneficial to start taking an aspirin 81 mg daily due to her vascular risk factors and family history. In addition also recommend that she stop diet supplements as this could put her at increased risk for vascular events. Recommend that she try Aleve for her headaches. If continues to get daily chronic headaches, should follow-up in neurology clinic for further evaluation and treatment for daily headaches. Stroke risk factor modifications and recommendations: Blood pressure recommendations 130/80-110/70 Total cholesterol goal 100- 200 and LDL goal less than 100 (at goal) Hemoglobin A1c goal less than 7 (at goal) Encourage cardiovascular exercise at least 3 times a week for 30 minutes. Follow-up in neurology clinic in 1 month for hospital follow-up with myself or our PA Thank you for allowing me to participate in this patient's care. I see no neurological barriers to discharge later today. If there is any questions or concerns, feel free to call/page me.
[2017-10-26 11:48] VITALS: BP 109/51; PULSE 71; TEMP 36.4; O2SAT 99
[2017-10-26 12:11] VITALS: BP 102/65; PULSE 67; TEMP 36.6; O2SAT 98
--- NOTE | 2017-10-26 12:11 | ECHOCARDIOGRAM REPORT ---
*NOTICE TO RECEIVING LIBERTARIAN AGENCY This information is strictly Confidential and protected under [place] law. [place] law prohibits you from making any further disclosure of this information unless further disclosure is expressly permitted by the written consent of the person to whom it pertains or is authorized by law. A general authorization for the release of medical or other information is not sufficient for this purpose. Hospital accepts no responsibility if the information is made available to any other person, INCLUDING THE PATIENT. Interpretation Summary * Name: KRUPA PADGETT Study Date: 10/26/2017 11:03 AM BP: 106/52 mmHg * Patient Location: .2E\S\E208\S\1 HR: 65 * : 1960 (M/d/yyyy) Gender: Female Height: 61 in * Age: 57 yrs Ethnicity: [place] Weight: 164 lb * Ordering Physician: Va Snyder * Referring Physician: Self, Referred * Performed By: Carri Lundy RDCS * * Reason For Study: TIA like symptoms * BSA: 1.7 m2 * -- Conclusions -- * Left ventricular systolic function is normal. * No regional wall motion abnormalities noted. * Ejection Fraction = 55-60%. * There is borderline concentric left ventricular hypertrophy. * Diastolic dysfunction, Grade II (pseudonormalization pattern). * Injection of contrast documented no interatrial shunt. Procedure Details * A complete two-dimensional transthoracic echocardiogram was performed (2D, M-mode, Doppler and color flow Doppler). * A saline contrast injection was performed to assess for cardiac shunting. * The injection was performed through an intravenous line in the right arm. * The attending nurse who injected the saline contrast was Zo Negrete RN. * A total of 20 cc of agitated saline was given. Left Ventricle * The left ventricle is normal in size. * There is borderline concentric left ventricular hypertrophy. * Ejection Fraction = 55-60%. * Left ventricular systolic function is normal. * No regional wall motion abnormalities noted. Right Ventricle * The right ventricle is grossly normal size. * The right ventricular systolic function is normal as assessed by tricuspid annular plane systolic excursion (TAPSE) (normal >1.5 cm). Atria * Borderline left atrial enlargement. * Right atrial size is normal. * Injection of contrast documented no interatrial shunt. Mitral Valve * The mitral valve is grossly normal. * There is no mitral valve stenosis. * Significant mitral regurgitation is absent. Tricuspid Valve * The tricuspid valve is not well visualized, but is grossly normal. * There is no tricuspid stenosis. * Significant tricuspid regurgitation is absent. Aortic Valve * The aortic valve is trileaflet. * The aortic valve opens well. * Aortic valve sclerosis mild, without significant aortic valvular stenosis. * There is no significant aortic regurgitation. Pulmonic Valve * The pulmonary valve is not well seen, but the Doppler examination is normal without significant regurgitation or stenosis. Great Vessels * The aortic root is normal size. * The pulmonary is not well visualized. Pericardium/Pleural * There is no pericardial effusion. Great Vessels * Normal inferior vena cava size and collapsability with sniff indicates a normal right atrial pressure of 3 mmHg Left Ventricular Diastolic Function * Diastolic dysfunction, Grade II (pseudonormalization pattern). MMode 2D Measurements and Calculations IVSd 0.95 cm LVIDd 4.2 cm LVIDs 3.1 cm LVPWd 0.96 cm IVS/LVPW 0.99 FS 26.3 % EDV(Teich) 77.7 ml ESV(Teich) 37.3 ml EF(Teich) 52.0 % EDV(cubed) 73.1 ml ESV(cubed) 29.2 ml EF(cubed) 60.0 % LV mass(C)d 127.3 grams LV mass(C)dI 73.3 grams/m\S\2 SV(Teich) 40.4 ml SI(Teich) 23.3 ml/m\S\2 SV(cubed) 43.9 ml SI(cubed) 25.3 ml/m\S\2 Ao root diam 2.7 cm Ao root area 5.8 cm\S\2 ACS 1.5 cm LA dimension 2.8 cm asc Aorta Diam 2.3 cm LA/Ao 1.0 LVOT diam 2.0 cm LVOT area 3.1 cm\S\2 LVAd ap4 20.8 cm\S\2 LVLd ap4 7.5 cm EDV(MOD-sp4) 49.4 ml EDV(sp4-el) 49.1 ml LVAs ap4 13.5 cm\S\2 LVLs ap4 6.4 cm ESV(MOD-sp4) 24.5 ml ESV(sp4-el) 24.3 ml EF(MOD-sp4) 50.4 % EF(sp4-el) 50.5 % LVAd ap2 25.8 cm\S\2 LVLd ap2 7.3 cm EDV(MOD-sp2) 77.5 ml EDV(sp2-el) 77.2 ml LVAs ap2 16.0 cm\S\2 LVLs ap2 6.1 cm ESV(MOD-sp2) 35.7 ml ESV(sp2-el) 35.6 ml EF(MOD-sp2) 53.9 % EF(sp2-el) 53.9 % LVLd %diff -2.01 % EDV(MOD-bp) 62.1 ml LVLs %diff -4.39 % ESV(MOD-bp) 29.9 ml EF(MOD-bp) 51.8 % SV(MOD-sp4) 24.9 ml SI(MOD-sp4) 14.3 ml/m\S\2 SV(MOD-sp2) 41.8 ml SI(MOD-sp2) 24.1 ml/m\S\2 SV(MOD-bp) 32.2 ml SI(MOD-bp) 18.5 ml/m\S\2 SV(sp4-el) 24.8 ml SI(sp4-el) 14.3 ml/m\S\2 SV(sp2-el) 41.6 ml SI(sp2-el) 23.9 ml/m\S\2 Doppler Measurements and Calculations MV E max arturo 85.7 cm/sec MV A max arturo 57.2 cm/sec MV E/A 1.5 MV dec time 0.25 sec Ao V2 max 113.0 cm/sec Ao max PG 5.1 mmHg Ao max PG (full) 2.5 mmHg ROSAMARIA(V,A) 2.2 cm\S\2 ROSAMARIA(V,D) 2.2 cm\S\2 LV V1 max PG 2.6 mmHg LV V1 max 80.9 cm/sec PA V2 max 88.9 cm/sec PA max PG 3.2 mmHg PA acc slope 371.8 cm/sec\S\2 PA acc time 0.12 sec TR max arturo 153.0 cm/sec PA pr(Accel) 24.8 mmHg
[2017-10-26] MEDS ORDERED: LPT40 PO (14:29)
[2017-10-26] MEDS ORDERED: ASPEC81 PO (14:29)
--- NOTE | 2017-10-26 14:30 | Discharge Instructions ---
Discharge Instructions Date of Service Oct 26, 2017. Admission Reason for Admission: Facial Numbness, Headache Discharge Discharge Diagnosis / Problem: Headache Discharge Goals Goal(s): Decrease discomfort, Improve function, Diagnostic testing Activity Recommendations Activity Limitations: resume your previous activity . Instructions / Follow-Up Instructions / Follow-Up with neurology with in 1 month Current Hospital Diet Patient's current hospital diet: AHA Diet (Heart Healthy) Discharge Diet Recommended Diet: AHA Diet (Heart Healthy) Pending Studies Studies pending at discharge: no Laboratory Results Hemoglobin A1c Test 10/25/17 11:40 Range/Units Estimated Average Glucose 108 mg/dl Hemoglobin A1c 5.4 4.5-5.6 % Lipid Panel Test 10/26/17 06:57 Range/Units Triglycerides Level 198 H 0-150 mg/dl Cholesterol Level 179 0-200 mg/dl HDL Cholesterol 72 mg/dl Cholesterol/HDL Ratio 2.5 LDL Cholesterol, Calculated 67 mg/dl Medical Emergencies . Who to Call and When: Medical Emergencies: If at any time you feel your situation is an emergency, please call 911 immediately. . Non-Emergent Contact Non-Emergency issues call your: Primary Care Provider Call Non-Emergent contact if: you have a fever, your pain is not controlled, your pain is worsening . . "Provider Documentation" section prepared by Elba Knox .
[2017-10-26 14:37] VITALS: BP 102/65; PULSE 67; TEMP 36.6; O2SAT 98
--- NOTE | 2017-10-26 14:41 | Discharge Summary ---
Discharge Summary Date of Service Oct 26, 2017. Discharge Summary Admission Date: Oct 25, 2017 at 14:23 Discharge Date: Oct 26, 2017 Discharge Disposition: Home Principal Diagnosis: Headache Problems/Secondary Diagnoses: Facial numbness Procedures: none Consultations: Neurology Medication Reconciliation New Medications: Aspirin (Aspirin EC Low Dose) 81 Mg Ectab 81 MG PO QAM, #30 % Atorvastatin (Lipitor) 40 Mg Tab 40 MG PO QAM, #30 TAB Continued Medications: Hydrochlorothiazide (Hctz) 25 Mg Tab 25 MG PO DAILY, TAB Lamotrigine (Lamictal) 200 Mg Tab 200 MG PO BID, TAB Losartan Potassium (Cozaar) 50 Mg Tab 50 MG PO DAILY Potassium Chloride (Potassium Chloride Er) 10 Meq Cap 1 CAP PO DAILY for 90 Days, #90 CAP 1 Refill Quetiapine Fumarate (Quetiapine Fumarate) 400 Mg Tab 400 MG PO HS Topiramate (Topamax) 100 Mg Tab 100 MG PO BID Referrals At Discharge Follow up Referrals: Neurologist Referral - Within a Month with Va Snyder D.O. Discharge Exam Review of Systems: Constitutional: No fever, No chills, No weakness, No fatigue Respiratory: No cough, No sputum, No wheezing, No shortness of breath, No dyspnea on exertion, No dyspnea at rest Cardiovascular: No chest pain, No edema Abdomen: No pain, No nausea, No vomiting, No diarrhea Genitourinary - Female: No urinary frequency, No urinary urgency, No urinary incontinence Neurologic: No memory loss, No paralysis, No weakness, No numbness/tingling , No vertigo, No balance problems Psychiatric: No depression symptoms Endocrine: No excessive thirst Physical Exam: General Appearance: WD/WN, no apparent distress, + obese Eyes: EOMI, sclerae normal Neck: supple, no adenopathy, thyroid normal, no carotid bruits Respiratory/Chest: chest non-tender, lungs clear, normal breath sounds, no respiratory distress Cardiovascular: regular rate, rhythm, no edema, no gallop, no JVD, no murmur Abdomen / GI: normal bowel sounds, non tender, soft, no organomegaly Extremities: normal inspection, no calf tenderness Neurologic/Psychiatric: primer and powder canning leader II-XII nml as tested, no motor/sensory deficits , alert, normal mood/affect, normal reflexes, oriented x 3 Skin: normal color, warm/dry, no rash Lymphatic: no adenopathy Hospital Course 57-year-old female came to the hospital with left sided facial numbness and headache. She reports that she woke up yesterday morning with nonspecific generalized headache. Quickly developed into more of a left-sided headache with severe throbbing quality. Noted that her left eye got red. No facial skin changes or flushing. She did feel like her face was hot. As they were driving to the emergency room for evaluation she felt slow onset tingling sensation on the left side of her face that lasted for about 5 minutes and then slowly resolved. She also felt like her left arm felt funny as well. She reports a history of migraine headaches but reports she has not had a typical migraine headache in over 20 years. She reports this did not feel like a typical migraine headache to her. She does tend to get frequent headaches and has some sort of headache on most days of the week. Takes daily ibuprofen. Sometimes will take Aleve. She reports this morning she still has a dull sensation in her left occiput like ahead it might be trying to develop but otherwise feels like she is at her neurological baseline. She did have some nausea associated with a headache yesterday. No weakness. No changes in mentation. No changes in speech. No facial droop. She has never had anything like this before. Patient does have a significant family history for a brother who had a stroke when he was in his teens of unknown etiology. Mother had a stroke in her 60s. Paternal grandfather had a stroke in his 40s. Workup to date was reviewed. CTA of the head was unremarkable. Ultrasound of the carotids was unremarkable. MRI of the brain report and images reviewed by myself and completely normal.ESR was noted to be normal at 15. Hemoglobin A1c 5.4. HEENT total cholesterol 179, LDL 67, HDL 72, triglycerides 198. Patient did receive Benadryl, Compazine, Decadron, and morphine in the emergency room and felt like this mostly resolved her headache. Pt was seen by neurology and following are the recommendation Recommend echocardiogram which was done and unremarkable. Additional labs to look for more genetically based hypercoagulable state taking into account her family history for further stroke risk factor evaluation. ( Many of these labs will take several weeks to return and can follow-up in neurology clinic for results) Recommended to the patient that it would be beneficial to start taking an aspirin 81 mg daily due to her vascular risk factors and family history. In addition also recommend that she stop diet supplements as this could put her at increased risk for vascular events. Recommend that she try Aleve for her headaches. If continues to get daily chronic headaches, should follow-up in neurology clinic for further evaluation and treatment for daily headaches. Stroke risk factor modifications and recommendations: Blood pressure recommendations 130/80-110/70 Total cholesterol goal 100- 200 and LDL goal less than 100 (at goal) Hemoglobin A1c goal less than 7 (at goal) Encourage cardiovascular exercise at least 3 times a week for 30 minutes. Follow-up in neurology clinic in 1 month for hospital follow-up with myself or our PA Total Time Spent: Greater than 30 minutes This includes examination of the patient, discharge planning, medication reconciliation, and communication with other providers. Discharge Instructions Please refer to the electronic Patient Visit Report (Discharge Instructions) for additional information. Additional Copies To Ziggy Sutton M.D.
--- NOTE | 2017-10-26 15:35 | Pharmacy Progress Note ---
Pharmacist Stroke Counseling Date of Service Oct 26, 2017. Scope Pharmacy has been consulted to provide medication discharge counseling for this patient admitted with ischemic stroke/hemorrhagic stroke/ transient ischemic attack as per the Pharmacist Discharge Counseling for Stroke Patients Protocol. Medications on Discharge New Medications: Aspirin (Aspirin EC Low Dose) 81 Mg Ectab 81 MG PO QAM, #30 % Atorvastatin (Lipitor) 40 Mg Tab 40 MG PO QAM, #30 TAB Continued Medications: Hydrochlorothiazide (Hctz) 25 Mg Tab 25 MG PO DAILY, TAB Lamotrigine (Lamictal) 200 Mg Tab 200 MG PO BID, TAB Losartan Potassium (Cozaar) 50 Mg Tab 50 MG PO DAILY Potassium Chloride (Potassium Chloride Er) 10 Meq Cap 1 CAP PO DAILY for 90 Days, #90 CAP 1 Refill Quetiapine Fumarate (Quetiapine Fumarate) 400 Mg Tab 400 MG PO HS Topiramate (Topamax) 100 Mg Tab 100 MG PO BID Action The above medications, specifically ones for stroke treatment/prophylaxis, have been reviewed in detail with the patient and/or patient group sales representative(s) prior to discharge. This includes indication, common adverse reactions, drug interactions, and medication administration. Medication counseling has been employed using the teach-back method to ensure understanding. Outcome The patient and/or patient group sales representative(s) have demonstrated understanding of the medications. Please note, they are aware that the pharmacist will call them within 72 hours post-discharge to confirm that the appropriate medications are being taken and answer any further medication related questions the patient might have at that time. Contact information Individual to be contacted: Adele Relationship to patient (if applicable): Self Phone number: [phone] Best time to call: 0900 Additional comments: Thank you for allowing pharmacy to be involved in the care of this patient. Please call [phone] with any additional questions
--- NOTE | 2017-10-29 12:52 | Pharmacy Progress Note ---
Pharmacist Post D/C Phone Note Date of phone call: Oct 29, 2017. Individual with whom pharmacist spoke to: Ms. Ackerman The following questions were reviewed during the phone call with responses listed below each: Can you tell me the medications that you are currently taking as well as when and how you take each medication? - Ms. Ackerman was able to correctly discuss her two new medications with me and the importance of medication adherence. 4 When have you missed any doses of your medications? - none What side effects are you having from your medications? - none What questions do you have about your medications? - none What problems are you having obtaining your medications? - None When is your next appointment with your primary care doctor? - 10/31/17 As per the Pharmacist Discharge Counseling for Stroke Patients Protocol, this phone call has been completed within 72 hours of discharge. Thank you for allowing us to be involved in the care of this patient. Thank you for allowing us to be involved in the care of this patient.
== END 2017-10-26 15:02 | disposition home or self-care (01) ==
LOC: C.EDB 10:56 → C.2E 14:23 → EDBEDREQ 14:30 → ENRESERV 14:42
PROVIDERS: ADMIT Internal Medicine; ATTEND Internal Medicine
DX: R51 Headache (principal); R20.0 Anesthesia of skin; Z79.899 Other long term (current) drug therapy; I12.9 Hypertensive chronic kidney disease with stage 1 through stage 4 chronic kidney disease, or unspecified chronic kidney disease; F32.9 Major depressive disorder, single episode, unspecified; N18.3 Chronic kidney disease, stage 3 (moderate); Z79.82 Long term (current) use of aspirin; Z90.710 Acquired absence of both cervix and uterus; Z83.3 Family history of diabetes mellitus; Z82.49 Family history of ischemic heart disease and other diseases of the circulatory system; Z82.3 Family history of stroke

== ENCOUNTER → 2018-02-27 | Outpatient (CLI) | payer BC ==
[~2018-02-27] MED LIST changes: +ASPI-320 PO; +LOSA50TA6 PO; +LPT40 PO; +POTA1CAP2 PO; -PRM/45 PO; -QUET-205 PO; +QUET1TAB20 PO; +TOPI100T20 PO
[2018-02-27 17:55] LABS: ALT/SGPT 23 U/L (12-78); AST/SGOT 15 U/L (15-37); BLOOD UREA NITROGEN 14 mg/dl (7-18); CALCIUM 9.1 mg/dl (8.5-10.1); CARBON DIOXIDE 27 mmol/L (21-32); CREATININE 1.16 mg/dl (0.60-1.20); GLUCOSE 99 mg/dl (70-99); POTASSIUM 3.3 mmol/L (3.5-5.1); SODIUM 140 mmol/L (136-145)
[2018-02-28 05:50] LABS: HEMOGLOBIN A1C 5.6 % (4.5-5.6)
== END | disposition home or self-care (01) ==
LOC: C.LABBFT 11:33
PROVIDERS: ATTEND Psychiatry & Neurology Psychiatry
DX: I10 Essential (primary) hypertension (principal); Z79.899 Other long term (current) drug therapy